=== PATIENT | male | born 1975 | race Caucasian/White ===

== ENCOUNTER → 2019-09-27 | Outpatient (REF) ==
--- NOTE | 2019-09-27 16:35 | Diagnostic Imaging Report ---
EXAMINATION: Lumbosacral spine 2 or 3 views HISTORY: Fall. Back pain. COMPARISON: None available. FINDINGS: There is no acute fracture or dislocation of the lumbar spine. There is grade 1 retrolisthesis of L5 on S1. The vertebral body heights are well maintained. Mild degenerative changes are present in the lumbar spine, with marginal osteophytes and facet hypertrophy. These are greatest at the L5-S1 level. The included soft tissues are unremarkable. IMPRESSION: 1. No acute fracture or dislocation in the lumbar spine. 2. Mild degenerative changes in the lumbar spine. 3. Grade 1 retrolisthesis of L5 on S1. Dictated by: Dictated on workstation # [id number]
--- NOTE | 2019-09-27 17:05 | Diagnostic Imaging Report ---
CLINICAL HISTORY: Back pain. Fall. COMPARISON: None. TECHNIQUE: 3 views of the thoracic spine. FINDINGS: There is no acute fracture or dislocation of the thoracic spine. Alignment is anatomic. The vertebral body heights are maintained. The included soft tissues are unremarkable. Included lungs are clear. IMPRESSION: 1. No acute fracture or dislocation in the thoracic spine. Dictated by: Dictated on workstation # [id number]
== END ==
LOC: OCC 15:51
PROVIDERS: ATTEND Nurse Practitioner Family
DX: M47.816 Spondylosis without myelopathy or radiculopathy, lumbar region (principal); W19.XXXA Unspecified fall, initial encounter
CPT/HCPCS: 72072; 72100